=== PATIENT | female | born 1980 | race Caucasian/White ===

== ENCOUNTER 2016-10-20 06:09 | Emergency (ER) | payer SELFPAY ==
[~2016-10-20] VITALS: Ht 152.4 cm; Wt 86.0 kg
[2016-10-20 06:24] VITALS: Ht 152.4 cm; Wt 86.0 kg
[2016-10-20 07:12] LABS: URINE BLOOD (Dip) POC Trace-intact (NEGATIVE)
--- NOTE | 2016-10-20 07:32 | ERD ---
ER Documentation Chief Complaint Date/Time DATE: 10/20/16 TIME: 07:10 Chief Complaint CAME IN VIA INTAKE FOR ABDOMINAL PAIN HPI 36-year-old female presents emergency department for abdominal pain that started around 6 AM this morning. Stated that her pain was more on the right upper abdominal area that radiates to right flank area. Nauseous but no vomiting. Last bowel movement was yesterday and it was normal. Denies headache, loss of consciousness, dizziness, blurry vision, changes in vision, photophobia, facial pain, ear pain, throat pain, difficulty swallowing, neck pain, shoulder pain, chest pain, cough, hemoptysis,loss of appetite, hematochezia, diarrhea, constipation, urinary symptoms, , the possibility of being , bladder and bowel incontinences, extremity weakness, extremity tenderness, numbness or tingling sensation, difficulty walking, recent travel, recent exposure to illness, recent antibiotic use in the last 3 months, fever, chills. Allergy: No known drug allergies. PMH: No past medical history. Family medical history: Stated that her grandmother had a heart attack on her 50s. AO LMP: "Last week." Medications: Denies. Surgery: 2. Primary Social History: Works as a system support administrator. Occasionally smokes cigarettes. Admits to use of cocaine. Stated that her last intake of cocaine was last month. Denies use of alcoholic beverages. ROS All systems reviewed and are negative except as per history of present illness. Medications Home Meds Active Scripts Ibuprofen* (Motrin*) 800 Mg Tab, 800 MG PO Q8 Y for PAIN AND OR ELEVATED TEMP, # 30 TAB Prov:JULISSA AGOSTO 10/20/16 Ondansetron Hcl* (Zofran*) 4 Mg Tablet, 4 MG PO Q8, #15 TAB Prov:HEATHERILAJULISSA DAI F 10/20/16 Sulfamethoxazole/Trimethoprim* (Bactrim Ds* Tablet) 1 Each Tablet, 1 TAB PO BID for 10 Days, TAB Prov:JULISSA AGOSTO F 10/20/16 PMhx/Soc Medical and Surgical Hx: pt denies Medical Hx, pt denies Surgical Hx Hx Alcohol Use: No Hx Substance Use: No Hx Tobacco Use: No Smoking Status: Never smoker Physical Exam Vitals Vital Signs Date Time Temp Pulse Resp B/P Pulse Ox O2 Delivery O2 Flow Rate FiO2 10/20/16 09:22 98.8 75 20 119/55 98 Room Air 10/20/16 06:24 97.9 76 18 130/88 97 Physical Exam CONSTITUTIONAL: Well-appearing; well-nourished; in no apparent distress. HEAD: Normocephalic; atraumatic. EYES: Conjunctiva clear, sclera non-icteric, EOM intact. PERRL Ears: Hearing intact. EACs clear, TMs non-bulging, non-inflamed, translucent & mobile, ossicles normal appearance, No obstructions, no erythema, no discharges Nose: No obstructions. No polyps. No external lesions. Mucosa non-inflamed. No external lesions, septum and turbinates normal. No rhinorrhea. No discharges. Frontal sinus is non-tender to palpation. Maxillary sinus is non-tender to palpation. MOUTH: Moist mucous membranes, no lesion, no obstructions, no vesicles, no thrush, patent airway Throat: Uvula in midline. Right tonsil is +1 with no erythema, no exudate. Left tonsil is +1 with no erythema, no exudate. Tolerating secretions well. Good gag reflex. Patent airway. Neck: Supple, without lesions, bruits, or adenopathy. No mass. Thyroid non- enlarged and non-tender to palpation. CHEST: Symmetrical chest. Respirations even and not labored. No retractions noted. CARDIOVASCULAR: Normal S1, S2. RRR. No murmurs, gallops. RESPIRATORY: Normal chest excursion with respiration; breath sounds clear and equal bilaterally; no wheezes, rhonchi, or rales. Breathing even and unlabored. Speaking in clear, full, and complete sentences w/ ease. ABDOMEN: Normal bowel sounds normal. Soft, round, non-distended, non-guarding, no rebound, no organomegaly, no masses, no pulsating abdominal mass. Has epigastric/right upper abdominal tenderness on palpation during inspiration. Able to jump 10 times without developing lower abdominal pain. No hernia. No peritoneal signs. : No CVA tenderness. BACK: Symmetrical shoulder. Spine is midline without deformity, tenderness. No evidence of trauma or deformity. PELVIS: Stable pelvis. No evidence of trauma or deformity. MUSCULOSKELETAL: Normal gait and station. No misalignment, asymmetry, crepitation, defects, tenderness, masses, effusions, decreased range of motion, instability, atrophy or abnormal strength or tone in the head, neck, spine, ribs , pelvis or extremities. No calf tenderness. NEUROVASCULAR: Distal pulses are present. Pedal pulse are present, equal, and normal. Capillary refills are < 2 seconds. NEUROLOGIC: Alert and oriented x4. Speaks full and clear sentences. Cranial Nerves II-XII normal. Sensation to pain, touch, and proprioception normal. Grossly unremarkable. No neurologic deficits. Romberg test is negative. PSYCHOLOGICAL: The patients mood and manner are appropriate. No hallucinations , delusions. Not SI. Not HI. Has the capacity to decide for self SKIN: Normal for age and ethnicity; warm; dry; good turgor; no apparent lesions or exudates. No rashes, hives, discoloration. Intact. Result Diagram: 10/20/16 0730 10/20/16 0730 Results 24 hrs Laboratory Tests Test 10/20/16 07:17 10/20/16 07:30 Bedside Urine pH (LAB) 6.0 Bedside Urine Protein (LAB) Negative Bedside Urine Glucose (UA) Negative Bedside Urine Ketones (LAB) Negative Bedside Urine Blood Trace-intact Bedside Urine Nitrite (LAB) Positive Bedside Urine Leukocyte Esterase (L Negative White Blood Count 12.110^3/ul Red Blood Count 4.5410^6/ul Hemoglobin 14.4g/dl Hematocrit 40.7% Mean Corpuscular Volume 89.6fl Mean Corpuscular Hemoglobin 31.7pg Mean Corpuscular Hemoglobin Concent 35.4g/dl Red Cell Distribution Width 12.6% Platelet Count 87440^3/UL Mean Platelet Volume 9.7fl Neutrophils % 53.3% Lymphocytes % 36.4% Monocytes % 5.2% Eosinophils % 4.5% Basophils % 0.4% Nucleated Red Blood Cells % 0.0/100WBC Neutrophils # 6.410^3/ul Lymphocytes # 4.410^3/ul Monocytes # 0.610^3/ul Eosinophils # 0.610^3/ul Basophils # 0.110^3/ul Nucleated Red Blood Cells # 0.010^3/ul Prothrombin Time 11.9Sec Prothrombin Time Ratio 0.9 INR International Normalized Ratio 0.88 Activated Partial Thromboplast Time 24.3Sec Urine Color YELLOW Urine Clarity SLIGHTLY CLOUDY Urine pH 5.0 Urine Specific Emery 1.024 Urine Ketones NEGATIVEmg/dL Urine Nitrite POSITIVEmg/dL Urine Bilirubin NEGATIVEmg/dL Urine Urobilinogen NEGATIVEmg/dL Urine Leukocyte Esterase NEGATIVELeu/ul Urine Microscopic RBC 2/HPF Urine Microscopic WBC 6/HPF Urine Squamous Epithelial Cells FEW/HPF Urine Bacteria FEW/HPF Urine Hemoglobin 1+mg/dL Urine Glucose NEGATIVEmg/dL Urine Total Protein NEGATIVEmg/dl Sodium Level 140mmol/L Potassium Level 3.9mmol/L Chloride Level 104mmol/L Carbon Dioxide Level 26mmol/L Anion Gap 14 Blood Urea Nitrogen 14mg/dl Creatinine 0.80mg/dl Glucose Level 104mg/dl Calcium Level 8.7mg/dl Total Bilirubin 0.0mg/dl Direct Bilirubin 0.00mg/dl Indirect Bilirubin 0.0mg/dl Aspartate Amino Transf (AST/SGOT) 27IU/L Alanine Aminotransferase (ALT/SGPT) 57IU/L Alkaline Phosphatase 68IU/L Troponin I < 0.012ng/ml Total Protein 6.7g/dl Albumin 4.4g/dl Globulin 2.30g/dl Albumin/Globulin Ratio 1.91 Amylase Level 62U/L Lipase 183U/L Urine Opiates Screen Negative Urine Barbiturates Negative Urine Amphetamines Screen Negative Urine Benzodiazepines Screen Negative Urine Cocaine Screen Positive Urine Cannabinoids Negative Current Medications Medications (Trade) Dose Ordered Sig/Mayte Route PRN Reason Start Time Stop Time Status Last Admin Dose Admin Ondansetron HCl (Zofran Odt) 4 mg ONCE STAT ODT 10/20/16 08:46 10/20/16 08:48 DC 10/20/16 09:00 Ibuprofen (Motrin) 800 mg ONCE ONCE PO 10/20/16 09:00 10/20/16 09:01 DC 10/20/16 09:00 Procedures/MDM Examination: Please see physical examination. Disease process, medical treatment was explained to the patient and family member. They verbalized understanding and agreed with the diagnostic tests, medical treatment, and follow-up care. EKG: Normal sinus rhythm with a ventricular rate of 66 bpm. No evidence of acute myocardial infarction. No evidence of ischemia. Radiology: Abdominal ultrasound Impression: Hepatomegaly with fatty infiltration of the liver. The visible portion of the pancreas are unremarkable. Portions of the body and distal tail of the pancreas are obscured by bowel gas. No evidence of cholelithiasis or gallbladder wall thickening. Blood works: Reviewed. POC urine : Negative. Urinalysis: UTI. Reviewed. Re-evaluation: Denies headache, dizziness, blurry vision, neck pain, shoulder pain, chest pain, back pain, abdominal pain, nausea, vomiting. No episode of emesis in the emergency department. Alert and oriented 4. Speaks full and clear sentences. Respirations even and unlabored. Lung sounds clear to auscultation. Active bowel sounds. There is no right upper/right lower/ epigastric/left upper/left lower abdominal tenderness and light and deep palpation. Negative on Rovsings sign. Negative Quique sign. Able to jump 5 times without developing right-sided abdominal pain. No peritoneal signs. Ambulatory with steady gait. No neurovascular deficits. No neurological deficits. Consultation: None. Differential diagnosis: Acute my cardial infarction versus acute coronary syndrome versus pancreatitis versus cholecystitis versus abdominal pain versus pyelonephritis versus urinary tract infection Medical decision m[age]-year-old female presents emergency department for abdominal pain that started around 6 AM this morning. Stated that her pain was more on the right upper abdominal area that radiates to right flank area. Nauseous but no vomiting. Last bowel movement was yesterday and it was normal. Patient's complaint, patient's history about her complaint, my physical findings, did not test results, my reevaluation are consistent my final diagnosis of urinary tract infection. Medications prescribed are the following: Bactrim. Zofran. Motrin. Patient and family member are made aware of the side effects and adverse reactions of the medications prescribed. Instructed on when to seek emergent and medical attention in case allergic/anaphylactic reactions or severe side effects and or adverse reactions to medications. Patient and family member verbalized understanding. Patient instructed Instructed to follow-up with his PCP in 24-48 hours. Instructed to Call 911 for chest pain, shortness of breath. Advised to come back here in ED as soon as possible for severity of symptoms which includes but not limited to: any new symptoms; shortness of breath/difficulty of breathing; cardiovascular changes; severe gastrointestinal symptoms; signs and symptoms of bleeding and or infection; signs of compartment syndrome/neurovascular changes; neurological changes/deficits. Patient and family member verbalized understanding. Upon discharge, patient is alert and oriented x 4, speaks full and clear sentences, denies pain, has no neurological deficits, has no neurovascular deficits, difficulty of breathing. Breathing even and unlabored. Lung sounds are clear to auscultation. Not in distress. Appears comfortable. Ambulatory with steady gait. Appears satisfied with care provided here in ED. Departure Diagnosis: Primary Impression: UTI (urinary tract infection) Condition: Good Additional Instructions: Instructed to follow-up with his PCP in 24-48 hours. Instructed to Call 911 for chest pain, shortness of breath. Advised to come back here in ED as soon as possible for severity of symptoms which includes but not limited to: any new symptoms; shortness of breath/difficulty of breathing; cardiovascular changes; severe gastrointestinal symptoms; signs and symptoms of bleeding and or infection; signs of compartment syndrome/neurovascular changes; neurological changes/deficits. Patient and family member verbalized understanding. JULISSA AGOSTO Oct 20, 2016 07:32
[2016-10-20 07:41] LABS: ADD SCAN DIFF NO
[2016-10-20 07:42] LABS: BASOPHIL # 0.1 10^3/ul (0.0-0.1); BASOPHILS % 0.4 % (0.0-2.0); EOSINOPHILS # 0.6 10^3/ul (0.0-0.5); EOSINOPHILS % 4.5 % (0.0-7.0); HEMATOCRIT 40.7 % (37.0-47.0); HEMOGLOBIN 14.4 g/dl (12.0-16.0); LYMPHOCYTES # 4.4 10^3/ul (0.8-2.9); LYMPHOCYTES % 36.4 % (15.0-51.0); MEAN CORPUSCULAR HEMOGLOBIN 31.7 pg (29.0-33.0); MEAN CORPUSCULAR HGB CONC 35.4 g/dl (32.0-37.0); MEAN CORPUSCULAR VOLUME 89.6 fl (82.0-101.0); MEAN PLATELET VOLUME 9.7 fl (7.4-10.4); MONOCYTE # 0.6 10^3/ul (0.3-0.9); MONOCYTES % 5.2 % (0.0-11.0); NEUTROPHIL # 6.4 10^3/ul (1.6-7.5); NEUTROPHILS % 53.3 % (39.0-77.0); PLATELET COUNT 276 10^3/UL (140-415); RED BLOOD COUNT 4.54 10^6/ul (4.20-5.40); RED CELL DISTRIBUTION WIDTH 12.6 % (11.5-14.5); WHITE BLOOD COUNT 12.1 10^3/ul (4.8-10.8)
[2016-10-20 07:53] LABS: ADD UMIC YES; UR ASCORBIC ACID NEGATIVE (NEGATIVE); UR BACTERIA FEW /HPF (NONE SEEN); UR BILIRUBIN (Dip) NEGATIVE (NEGATIVE); UR BLOOD (Dip) 1+ mg/dL (NEGATIVE); UR CLARITY SLIGHTLY CLOUDY (CLEAR); UR COLOR YELLOW (YELLOW); UR GLUCOSE (Dip) NEGATIVE (NEGATIVE); UR KETONES (Dip) NEGATIVE (NEGATIVE); UR LEUKOCYTE ESTERASE (Dip) NEGATIVE Leu/ul (NEGATIVE); UR NITRITE (Dip) POSITIVE (NEGATIVE); UR RBC 2 /HPF (0-5); UR SPECIFIC GRAVITY (Dip) 1.024 (1.003-1.030); UR SQUAMOUS EPITHELIAL CELL FEW /HPF (FEW); UR TOTAL PROTEIN (Dip) NEGATIVE (NEGATIVE); UR UROBILINOGEN (Dip) NEGATIVE (NEGATIVE)
[2016-10-20 07:59] LABS: INR 0.88; PROTIME 11.9 Sec (12.2-14.2); PT RATIO 0.9
[2016-10-20 08:00] LABS: PARTIAL THROMBOPLASTIN TIME 24.3 Sec (25.0-35.0)
[2016-10-20 08:03] LABS: ALANINE AMINOTRANSFERASE 57 IU/L (13-69); ALBUMIN 4.4 g/dl (3.3-4.9); ALBUMIN/GLOBULIN RATIO 1.91; ALKALINE PHOSPHATASE 68 IU/L (42-121); AMYLASE 62 U/L (11-123); ANION GAP 14 (8-16); ASPARTATE AMINO TRANSFERASE 27 IU/L (15-46); BLOOD UREA NITROGEN 14 mg/dl (7-20); CALCIUM 8.7 mg/dl (8.4-10.2); CARBON DIOXIDE 26 mmol/L (21-31); CHLORIDE 104 mmol/L (97-110); GLUCOSE 104 mg/dl (70-220); POTASSIUM 3.9 mmol/L (3.5-5.1); SODIUM 140 mmol/L (135-144); TOTAL PROTEIN 6.7 g/dl (6.1-8.1)
--- NOTE | 2016-10-20 08:12 | RADRPT ---
PROCEDURE: US Abdomen. CLINICAL INDICATION: epigastric tenderness on palpation(during inspiration) TECHNIQUE: Multiple real-time images were acquired of the patient's abdomen and retroperitoneum ut ilizing a high resolution transducer. COMPARISON: None FINDINGS: The head and body of the pancreas are unremarkable. Portal and splenic veins are patent. The dista l body and tail of the pancreas are obscured by bowel gas. The inferior vena cava is patent. The liver is echogenic and enlarged measuring 17 cm in length. No hepatic mass or intrahepatic bili carmen ductal dilatation is identified. The hepatic and portal veins are patent. The gallbladder wall measures 2.8 mm. There is normal blood flow in the portal vein. The common bile duct measures 3.8 mm. The right kidney measures 6.9 cm in length and is normal. IMPRESSION: 1. Hepatomegaly with fatty infiltration of the liver. 2. The visible portions of the pancreas are unremarkable. Portions of the body and distal tail of the pancreas are obscured by bowel gas. 3. No evidence of cholelithiasis or gallbladder wall thickening. RPTAT:AAJJ Physician Erasto Date Time Electronically viewed and signed by Physician Erasto on 10/20/2016 08:11 FEDERICO/
--- NOTE | 2016-10-20 08:12 | RADRPT ---
PROCEDURE: XR Chest. CLINICAL INDICATION: Epigastric pain. Chest pain. TECHNIQUE: PA and Lateral views of the chest were obtained. COMPARISON: None. FINDINGS: The soft tissues are normal. There are degenerative osteophytes in the mid thoracic spine. The hea rt, cardiomediastinal silhouette and hilar structures are normal. The pulmonary vasculature is valeri l. There is a left-sided aorta. The lungs are clear. The costophrenic angles are normal. IMPRESSION: 1. 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 RPTAT:AAJJ Physician Erasto Date Time Electronically viewed and signed by Physician Erasto on 10/20/2016 08:12 FEDERICO/
[2016-10-20 08:14] LABS: TROPONIN-I < 0.012 ng/ml (0.00-0.12)
[2016-10-20 08:33] LABS: BARBITURATES Negative (NEGATIVE); BENZODIAZEPINES Negative (NEGATIVE); CANNABINOIDS Negative (NEGATIVE); COCAINE Positive (NEGATIVE); OPIATES Negative (NEGATIVE)
[2016-10-20] MEDS ORDERED: ONDANSETRON (ODT) 4 MG TAB ODT STA (08:46)
[2016-10-20] MEDS ORDERED: ONDA4TAB8 PO (08:48)
[2016-10-20] MEDS ORDERED: SULF1TAB31 PO (08:48)
[2016-10-20] MEDS ORDERED: IBUP800T25 PO (08:49)
[2016-10-20] MEDS ORDERED: IBUPROFEN 800 MG TAB PO ONE (09:00)
[2016-10-20 09:22] VITALS: BP 119/55; PULSE 75; RESP 20; TEMP 98.8
== END 2016-10-20 09:22 | disposition home or self-care (01) ==
LOC: FTE 06:09
DX: N39.0 Urinary tract infection, site not specified (principal); R11.0 Nausea; F17.210 Nicotine dependence, cigarettes, uncomplicated
CPT/HCPCS: 71020; 76705; 80053; 80307; 81001; 81003; 82150; 83690; 84484; 85025; 85610; 85730; 93005

== ENCOUNTER 2017-06-12 01:29 | Emergency (ER) | END 2017-06-12 08:17 | disposition home or self-care (01) ==

== ENCOUNTER 2017-06-29 23:59 | Emergency (ER) | END 2017-06-30 07:40 | disposition home or self-care (01) ==